=== PATIENT | female | born 1960 | race Caucasian/White ===

== ENCOUNTER 2017-12-29 16:06 | Emergency (ER) | payer BC | END 2017-12-29 18:24 | disposition home or self-care (01) | LOC: D.ER 16:06 | DX: S93.401A Sprain of unspecified ligament of right ankle, initial encounter (principal); W19.XXXA Unspecified fall, initial encounter; Y93.89 Activity, other specified; Y92.89 Other specified places as the place of occurrence of the external cause; S83.92XA Sprain of unspecified site of left knee, initial encounter; I10 Essential (primary) hypertension; K21.9 Gastro-esophageal reflux disease without esophagitis; Z85.038 Personal history of other malignant neoplasm of large intestine; F17.200 Nicotine dependence, unspecified, uncomplicated ==

== ENCOUNTER 2018-01-12 11:04 | Emergency (ER) | payer BC | END 2018-01-12 12:24 | disposition left against medical advice (07) | LOC: D.ER 11:04 | DX: I10 Essential (primary) hypertension (principal) ==

== ENCOUNTER 2020-04-02 07:46 | Day surgery (SDC) | payer OTHER ==
[~2020-04-02] VITALS: Ht 160 cm; Wt 80.0 kg
--- NOTE | ~2020-04-02 | OP ---
PATIENT NAME: TERE BHATIA MEDICAL RECORD: [id number] :60 [facility] DATE: SURGEON: SANDEEP BOYCE MD DATE OF OPERATION: 04/02/2020 PROCEDURE: Colonoscopy with biopsy and polypectomy. REFERRING PHYSICIAN: SADIA Haines INDICATIONS: Ms. Bhatia is a delightful 60-year-old woman with a history of rectal cancer (August 2009, it was T2N0M0 with surgery preceded by chemotherapy and radiation therapy). She has had symptoms of generalized abdominal pain associated with eating. She has been intermittent over the past year. She has also had a mucus discharge from her rectum and her stools have been thinner over the past year. She has had occasional bright red blood per rectum typically; however, having a bowel movement every 3-4 days. Her last colonoscopy was 08/01/2018 with findings of a previous colorectal anastomosis in the distal rectum (biopsies were benign), normal mucosa in the terminal ileum and two splenic flexure polyps. On biopsy, no adenoma or hyperplastic changes were identified. She presents for outpatient colonoscopy. PREMEDICATIONS: Total IV anesthesia, propofol 350 mg. INSTRUMENT: SubtleData video colonoscope, pediatric. PROCEDURE AND FINDINGS: After receiving informed consent, Ms. Bhatia was placed in left lateral decubitus position and sedated as per anesthesia. After achieving an adequate level of sedation, digital rectal exam was performed that showed no external hemorrhoidal tags, fissures or fistulas, normal sphincter tone, no palpable rectal masses. Colonoscope was introduced per rectally and advanced to the cecum without difficulty. The cecum, IC valve, and appendiceal orifice were identified. As the colonoscope was withdrawn, careful inspection was made to the carter of the colon. Overall mucosa had normal vascular and fold pattern. At the hepatic flexure was a 0.5 cm sessile polyp removed with hot biopsy forcep technique. The distal colorectal anastomosis was identified and appeared unremarkable. The anastomosis was widely open and it was not strictured or narrowed. Biopsies were taken from the distal rectum, mild internal hemorrhoids were noted on withdrawing the colonoscope. A fair to good prep was present. Ms. Bhatia tolerated the procedure well, no immediate complications. Withdrawal time was 8 minutes. ASSESSMENT: 1. Patent colorectal anastomosis, status post biopsy. 2. Polyp with hepatic flexure. 3. Mild internal hemorrhoids. RECOMMENDATIONS: 1. Follow up histopathology. 2. Avoid aspirin, nonsteroidal anti-inflammatory drugs and VERA-2 inhibitors for 14 days post polypectomy. 3. High fiber diet. 4. Daily Metamucil. 5. Anucort HC suppositories 1 per rectum b.i.d. for 14 days. 6. Colonoscopy in 3 years. OPERATIVE REPORT [id number] SRIRAMTERE CHENG TRANSINT:[id number] Voice Confirmation ID: [id number] DOCUMENT ID: [id number] SANDEEP BOYCE MD CC: BOOGIE SPARKS [id number] DICTATION DATE: 04/02/20 1118 ORIENTAL MEDICINE PRACTITIONER: 04/02/20 1422 [facility] [address] [place] [address]
[2020-04-02 08:08] LABS: CALC OSMOLALITY 286 mosm/kg (275-300); CALCIUM 8.8 mg/dL (8.5-10.1); CARBON DIOXIDE 29.5 mmol/L (21.0-32.0); CHLORIDE - SERUM 104 mmol/L (98-107); CREATININE - SERUM 0.8 mg/dL (0.6-1.3); POTASSIUM - SERUM 3.8 mmol/L (3.5-5.1); SODIUM 141 mmol/L (136-145); UREA NITROGEN 22 mg/dL (7-18); eGFR NON AFRICAN AMERICAN 77 mL/min (90-120)
[2020-04-02 08:09] LABS: GLUCOSE 145 mg/dL (74-106)
[2020-04-02 08:26] LABS: APTT 31.9 SECONDS (22.8-39.4); INR 0.95 (0.85-1.17); PROTIME 12.6 SECONDS (11.6-15.0)
[2020-04-02 08:55] LABS: BASOPHILS 0.5 % (0-2); EOSINOPHILS 1.9 % (0-7); HEMATOCRIT 44.2 % (36.0-48.0); IMMATURE GRANULOCYTES 0.1 % (0-5); LYMPHOCYTES 21.1 % (15-50); MCH 29.2 pg (26.0-34.0); MCHC 31.7 g/dL (31.0-37.0); MCV 92.3 fL (80.0-100.0); MEAN PLATELET VOLUME 10.3 fL (7.4-10.4); NEUTROPHILS 60.4 % (40-80); PLATELET COUNT 298 10x3/uL (130-400); RBC 4.79 10x6/uL (4.00-5.40); RDW 13.3 % (11.5-14.5); WBC 8.6 10x3/uL (4.8-10.8)
[2020-04-02] MEDS ORDERED: LOPRESSOR25 MG PO (09:43)
[2020-04-02] MEDS ORDERED: DIOVAN160 MG PO (09:44)
[2020-04-02] MEDS ORDERED: OMEPRAZOLE20 M1 PO (09:44)
[2020-04-02] MEDS ORDERED: CARAFATE1 G PO (09:56)
[2020-04-02 10:06] VITALS: BP 115/69; Ht 160 cm; Wt 80.0 kg
--- NOTE | 2020-04-02 14:51 | NUR ---
1205 IV DC'D. CATHETER TIP INTACT. NO BLEEDING AT SITE. BANDAID APPLIED. REVIEWED DISCHARGE INSTRUCTIONS AND BOTH PT AND HER VOICE UNDERSTANDING OF INSTRUCTIONS.
== END 2020-04-02 12:22 | disposition home or self-care (01) ==
LOC: D.OPS 07:46
PROVIDERS: Anesthesiology; ATTEND Internal Medicine Gastroenterology
DX: K63.5 Polyp of colon (principal); K64.8 Other hemorrhoids

== ENCOUNTER 2021-04-18 11:25 | Day surgery (SDC) | payer OTHER ==
[2021-04-16 11:09] LABS: CALC OSMOLALITY 281 mosm/kg (275-300); CALCIUM 8.8 mg/dL (8.5-10.1); CARBON DIOXIDE 28.6 mmol/L (21.0-32.0); CHLORIDE - SERUM 107 mmol/L (98-107); CREATININE - SERUM 0.7 mg/dL (0.6-1.3); GLUCOSE 145 mg/dL (74-106); SODIUM 139 mmol/L (136-145); UREA NITROGEN 15 mg/dL (7-18); eGFR NON AFRICAN AMERICAN 90 mL/min (90-120)
[2021-04-16 11:14] LABS: BASOPHILS 1.2 % (0-2); EOSINOPHILS 2.9 % (0-7); HEMATOCRIT 40.9 % (36.0-48.0); HEMOGLOBIN 13.7 g/dL (12-16); LYMPHOCYTES 32.5 % (15-50); MCH 29.3 pg (26.0-34.0); MCHC 33.5 g/dL (31.0-37.0); MCV 87.3 fL (80.0-100.0); MEAN PLATELET VOLUME 8.5 fL (7.4-10.4); MONOCYTES 15.2 % (2-11); NEUTROPHILS 48.2 % (40-80); PLATELET COUNT 268 10x3/uL (130-400); RBC 4.68 10x6/uL (4.00-5.40); RDW 13.6 % (11.5-14.5); WBC 7.1 10x3/uL (4.8-10.8)
[~2021-04-18] VITALS: Ht 160 cm; Wt 77.1 kg
[~2021-04-18 11:25] MED LIST: CARAFATE1 G PO; COZAAR50 MG PO; DIOVAN160 MG PO; LOPRESSOR25 MG PO; OMEPRAZOLE20 M1 PO; VITAMIN B-122500 MCG PO
[2021-04-18 13:30] VITALS: BP 127/85; Ht 160 cm; Wt 77.1 kg
--- NOTE | 2021-04-18 18:10 | NUR ---
1758 PROMETHAZINE 5MG GIVEN SLOW IVP TITRATED IN NORMAL SALINE.
[2021-04-18] MEDS ORDERED: ZOFRAN ODT4 MG/UDTAB PO (18:33)
--- NOTE | 2021-04-18 19:06 | NUR ---
1834 DR. KIRBY ON THE UNIT AND MADE AWARE OF PATIENT'S CONDITION WITH REGARD TO NAUSEA AND VOMITING. HE ORDERED ZOFRAN ODT X 1 NOW AND SENT IN A SCRIPT FOR MORE ZOFRAN TO PATIENT'S PHARMACY.
--- NOTE | 2021-04-18 19:07 | NUR ---
1845 PATIENT WANTS TO GO AHEAD AND TRY TO GO HOME TO SEE IF GETTING QUIET AT HER OWN HOME WILL HELP THE NAUSEA AND VOMITING PASS. SHE HAS ALSO NOW STARTED HAVING LOOSE STOOLS AND IS INCONTINENT DUE TO HISTORY OF COLON CANCER.
--- NOTE | 2021-04-19 09:03 | OP ---
PATIENT NAME: TERE BHATIA MEDICAL RECORD: [id number] :60 LOCATION:[facility] ADMISSION DATE: SURGEON: SUNDEEP KIRBY DO DATE OF OPERATION: 04/18/2021 PROCEDURE PERFORMED: Left endoscopic carpal tunnel release. PREOPERATIVE DIAGNOSIS: Left carpal tunnel syndrome. POSTOPERATIVE DIAGNOSIS: Left carpal tunnel syndrome. INDICATIONS: Ms. Bhatia is a 61-year-old female who has had left hand numbness and tingling for quite some time. She had a nerve conduction study showing the above findings of carpal tunnel syndrome. She is aware of the risks of this including damage to the median nerve, continued pain, numbness and tingling, infection and bleeding and she signed the consent. SURGEON: Sundeep Kirby DO. DESCRIPTION OF PROCEDURE: The patient was taken to the operative suite, laid in supine position, given general anesthetic and LMA was placed. She was given 2 grams of Ancef preoperatively. The left upper extremity was prepped and draped in sterile fashion. A timeout was performed. Everyone was in agreement with correct side, site, patient and procedure. I then began by exsanguinating the left upper extremity. Tourniquet was inflated to 250 mmHg. It is up for 9 minutes. I then made an incision centered over the palmaris longus tendon and made blunt dissection with Jeannenelljeremi down to the median nerve. I then released the forearm fascia in the incision site from distal to proximal. I then entered the carpal tunnel with the dilators and brought the sheath in. She had adipose tissue in the carpal tunnel, which I cleaned out with a rasp and a probe and then brought the blade in and raised it up and transected the transverse carpal ligament fat herniating down into the carpal tunnel and removed all the instruments. I then used the long end of the Ragnell and scissors to ensure there were no remaining fibers in the transverse carpal ligament and there were not. We then injected the site with 0.25% Marcaine with epinephrine, 10 mL of it around the site and let the tourniquet down at 9 minutes. Chalino Agee, certified surgical garment inspector, then closed with 5-0 Monocryl in inverted interrupted fashion. She was dressed with Steri-Strips, Adaptic, 4 x 4, Kerlix, and Coban lightly wrapped on the hand. She was awakened and taken to recovery in stable condition. BLOOD LOSS: Minimal. COMPLICATIONS: None. TRANSINT:[id number] Voice Confirmation ID: [id number] DOCUMENT ID: [id number] OPERATIVE REPORT [id number] TERE BHATIA MICHAEL D, DO at 0903 CC: [id number] DICTATION DATE: 04/18/21 1538 PLANNING DIVISION SUPERINTENDENT: 04/19/21 0242 [facility] 04/18/[address] [address]
== END 2021-04-18 19:00 | disposition home or self-care (01) ==
LOC: D.OPS 11:25
PROVIDERS: Anesthesiology; ATTEND Orthopaedic Surgery
DX: G56.02 Carpal tunnel syndrome, left upper limb (principal)